=== PATIENT | male | born 1950 | race Caucasian/White ===

== ENCOUNTER 2016-09-08 14:01 | Emergency (ER) | payer BC, MEDICARE ==
--- NOTE | 2016-09-08 14:24 | ED.PDOC ---
History of Present Illness - General Chief Complaint: General Stated Complaint: chills,fever,hurts all over Time Seen by Provider: 09/08/16 14:21 Source: patient, family Exam Limitations: no limitations - History of Present Illness Timing/Duration: 24 hours Severity: moderate Improving Factors: nothing Worsening Factors: nothing Associated Symptoms: loss of appetite, other - fatigue Allergies/Adverse Reactions: Allergies NO KNOWN ALLERGY Allergy (Unverified 02/12/15 06:08) Home Medications: Ambulatory Orders Albuterol Sulfate Nebs [Proventil Nebs] 2.5 mg INH PRN 09/08/16 Amlodipine Besylate 10 mg PO DAILY 09/08/16 Beclomethasone Dipropionate [Qvar] 80 mcg IN BID 09/08/16 Budesonide (Nasal) [Budesonide] 32 mcg NA BID 09/08/16 Budesonide-Formoterol Fumarate [Symbicort] 2 aer IN BID 09/08/16 Losartan Potassium & Hydrochlo [Losartan Potassium/Hydroc 100-25 mg] 1 tab PO DAILY 09/08/16 Montelukast Sodium 10 mg PO DAILY 09/08/16 Oseltamivir Phosphate [Tamiflu] 75 mg PO BID #10 cap 09/08/16 Potassium Chloride [Micro-K] 10 meq PO DAILY 09/08/16 Sulfamethoxazole-Trimethoprim [Bactrim Ds 800-160 mg] 1 tab PO DAILY 09/08/16 Tadalafil [Cialis] 5 mg PO DAILY 09/08/16 Review of Systems - Review of Systems Constitutional: States: chills, fever. Denies: diaphoresis EENTM: States: no symptoms reported. Denies: ear pain, nose congestion, throat pain Respiratory: Denies: cough, short of breath, stridor, wheezing Cardiology: Denies: chest pain, palpitations Gastrointestinal/Abdominal: States: no symptoms reported. Denies: abdominal pain, constipation, diarrhea, nausea Genitourinary: States: no symptoms reported Musculoskeletal: States: other - general myalgias. Denies: neck pain Skin: States: no symptoms reported Neurological: States: no symptoms reported. Denies: headache, tremors Endocrine: States: no symptoms reported Hematologic/Lymphatic: States: no symptoms reported All other Systems: Reviewed and Negative Past Medical History (General) - Patient Medical History Hx Asthma: Yes Hx of COPD: Yes Hx Hypertension: Yes - Vaccination History Hx Tetanus, Diphtheria Vaccination: Yes Hx Influenza Vaccination: Yes Hx Pneumococcal Vaccination: Yes - Social History Hx Tobacco Use: Yes Hx Alcohol Use: Yes - Female History Patient : No Family Medical History - Family History Father Family History: No Known Living Status: Physical Exam - Physical Exam General Appearance: Ill Appearing, Well Nourished, Other - FATIGUED Eye Exam: bilateral normal Ears, Nose, Throat: hearing grossly normal, normal ENT inspection, normal pharynx Neck: non-tender, full range of motion, supple, normal inspection Respiratory: chest non-tender, lungs clear, normal breath sounds, no respiratory distress, no accessory muscle use Cardiovascular/Chest: normal peripheral pulses, regular rate, rhythm, no JVD Gastrointestinal/Abdominal: normal bowel sounds, non tender, soft Extremity: normal range of motion, normal inspection 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 RX TAMIFLU. CLOSE F/U. NO RESPIRATORY S/SX. Departure - Departure Clinical Impression: Influenza, Fever, Myalgia Disposition: Discharge to Home or Self Care Condition: Good Departure Forms: ED Discharge - Pt. Copy, Patient Portal Self Enrollment Instructions: Influenza Diet: other - Drink plenty of fluids and foods that sound appetizing (i.e. crackers, soup). Activity: walking as tolerated Referrals: Michael Gavin MD [Primary Care Provider] - 1-5 Days Prescriptions: Oseltamivir Phosphate [Tamiflu] 75 mg PO BID #10 cap Home Medications: Ambulatory Orders Albuterol Sulfate Nebs [Proventil Nebs] 2.5 mg INH PRN 09/08/16 Amlodipine Besylate 10 mg PO DAILY 09/08/16 Beclomethasone Dipropionate [Qvar] 80 mcg IN BID 09/08/16 Budesonide (Nasal) [Budesonide] 32 mcg NA BID 09/08/16 Budesonide-Formoterol Fumarate [Symbicort] 2 aer IN BID 09/08/16 Losartan Potassium & Hydrochlo [Losartan Potassium/Hydroc 100-25 mg] 1 tab PO DAILY 09/08/16 Montelukast Sodium 10 mg PO DAILY 09/08/16 Oseltamivir Phosphate [Tamiflu] 75 mg PO BID #10 cap 09/08/16 Potassium Chloride [Micro-K] 10 meq PO DAILY 09/08/16 Sulfamethoxazole-Trimethoprim [Bactrim Ds 800-160 mg] 1 tab PO DAILY 09/08/16 Tadalafil [Cialis] 5 mg PO DAILY 09/08/16 Additional Instructions: Please take tylenol or ibuprofen every 6 hours for fever or muscle aches. Plenty of rest and fluids. Please see your regular Dr. sooner or return to the ER if you develop any troubles breathing or other concerns.
[2016-09-08 16:00] VITALS: BP 141/75; TEMP 99.7; O2SAT 94
== END 2016-09-08 16:00 | disposition home or self-care (01) ==
LOC: ER 14:01
DX: J11.1 Influenza due to unidentified influenza virus with other respiratory manifestations (principal); J44.9 Chronic obstructive pulmonary disease, unspecified; I10 Essential (primary) hypertension; Z87.891 Personal history of nicotine dependence; Z79.899 Other long term (current) drug therapy

== ENCOUNTER 2016-09-23 05:59 | Day surgery (SDC) | payer BC, MEDICARE ==
[2016-09-23] MEDS ORDERED: SODIUM CHLORIDE 0.9% 10 ML VIAL ONE (11:51)
[2016-09-23] MEDS ORDERED: methylPREDNISolone ACETATE 80 MG/ML VIAL ONE (11:51)
[2016-09-23] MEDS ORDERED: LIDOCAINE 1% 10 ML VIAL INJ ONE (11:51)
[2016-09-23] MEDS ORDERED: SODIUM BICARBONATE VIAL 50 MEQ/50 ML VIAL IV ONE (13:17)
[2016-09-23] MEDS ORDERED: LIDOCAINE 1% MPF 5 ML VIAL INJ ONE (13:17)
[2016-09-23 13:30] VITALS: BP 157/83; TEMP 98; O2SAT 96
== END 2016-09-23 13:35 | disposition home or self-care (01) ==
LOC: AMB 05:59
PROVIDERS: ATTEND Anesthesiology Pain Medicine
DX: M51.36 Other intervertebral disc degeneration, lumbar region (principal); M51.17 Intervertebral disc disorders with radiculopathy, lumbosacral region; I10 Essential (primary) hypertension; J44.9 Chronic obstructive pulmonary disease, unspecified; Z87.891 Personal history of nicotine dependence; Z79.899 Other long term (current) drug therapy

== ENCOUNTER → 2017-01-17 | Outpatient (CLI) | payer MEDICARE, BC | END | disposition home or self-care (01) | LOC: GMAJ 12:08 | PROVIDERS: ATTEND Family Medicine | DX: Z12.5 Encounter for screening for malignant neoplasm of prostate (principal); I10 Essential (primary) hypertension | CPT/HCPCS: 84443; G0103 ==

== ENCOUNTER → 2017-05-06 | Outpatient (CLI) | payer BC, MEDICARE | END | disposition home or self-care (01) | LOC: LAB.O 11:27 | PROVIDERS: ATTEND Internal Medicine | DX: R06.09 Other forms of dyspnea (principal); J30.9 Allergic rhinitis, unspecified ==

== ENCOUNTER → 2017-05-30 | Outpatient (CLI) | payer BC, MEDICARE | END | disposition home or self-care (01) | LOC: LAB.O 07:56 | PROVIDERS: ATTEND Internal Medicine | DX: J45.909 Unspecified asthma, uncomplicated (principal) ==

== ENCOUNTER → 2017-06-11 | Outpatient (CLI) | payer BC, MEDICARE | LOC: LAB.O 14:49 | PROVIDERS: ATTEND Urology | DX: E29.1 Testicular hypofunction (principal); R97.20 Elevated prostate specific antigen [PSA] ==

== ENCOUNTER 2017-08-11 19:15 | Emergency (ER) | payer BC, MEDICARE ==
[2017-08-11] MEDS ORDERED: TETANUS,DIPHTHERIA,PERTUSSIS 1 EA SYG IM ONE (20:24)
[2017-08-11] MEDS ORDERED: CHLORHEXIDINE GLUCONATE 4 % 15 ML UD TOP ONE ×2 (20:31)
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
[2017-08-11] MEDS ORDERED: NEOMYCIN-BACITRACIN-POLYMYXIN 30 GM TUBE TOP ONE (21:00)
[2017-08-11] MEDS ORDERED: NEOMYCIN-BACITRACIN-POLYMYXIN 0.9 GM UD TOP ONE (21:02)
[2017-08-11 21:26] VITALS: BP 113/65; TEMP 98.1; O2SAT 90
== END 2017-08-11 21:26 | disposition home or self-care (01) ==
LOC: ER 19:15
DX: S61.213A Laceration without foreign body of left middle finger without damage to nail, initial encounter (principal); J44.9 Chronic obstructive pulmonary disease, unspecified; I10 Essential (primary) hypertension; Z23 Encounter for immunization; W26.0XXA Contact with knife, initial encounter; Y92.9 Unspecified place or not applicable

== ENCOUNTER 2017-09-26 08:52 | Emergency (ER) | payer BC, MEDICARE ==
[2017-09-26] MEDS ORDERED: ONDANSETRON INJ 4 MG/2 ML VIAL IM ONE (09:53)
[2017-09-26] MEDS ORDERED: HYDROmorphone HCL INJ 2 MG/ML VIAL IM ONE (09:53)
--- NOTE | 2017-09-26 09:56 | ED.PDOC ---
History of Present Illness - General Chief Complaint: General Stated Complaint: R Hip Pain radiates into the groin Time Seen by Provider: 09/26/17 09:44 Source: patient Exam Limitations: no limitations - History of Present Illness Initial Comments: HE SUFFERS OF SCIATICA AND HAS CHRONIC BACK PAIN. THIS WEEKEND HE WENT BOWLING AND NOW C/O PAIN TO THE RIGHT HIP AREA. UNABLE TO BEAR WEIGHT ON THE RIGHT HIP. Timing/Duration: 1 week Severity: severe Improving Factors: nothing Worsening Factors: nothing Associated Symptoms: denies symptoms Allergies/Adverse Reactions: Allergies NO KNOWN ALLERGY Allergy (Unverified 02/12/15 06:08) Home Medications: Ambulatory Orders Albuterol Sulfate Nebs [Proventil Nebs] 2.5 mg INH PRN 09/08/16 Beclomethasone Dipropionate [Qvar] 80 mcg IN BID 09/08/16 Budesonide (Nasal) [Budesonide] 32 mcg NA BID 09/08/16 Budesonide-Formoterol Fumarate [Symbicort] 2 aer IN BID 09/08/16 Losartan Potassium & Hydrochlo [Losartan Potassium/Hydroc 100-25 mg] 1 tab PO DAILY 09/08/16 Montelukast Sodium 10 mg PO DAILY 09/08/16 Potassium Chloride [Micro-K] 10 meq PO DAILY 09/08/16 Tadalafil [Cialis] 5 mg PO DAILY 09/08/16 Carvedilol 25 mg PO DAILY 09/26/17 Review of Systems - Review of Systems Constitutional: States: no symptoms reported EENTM: States: no symptoms reported Respiratory: States: no symptoms reported Cardiology: States: no symptoms reported Gastrointestinal/Abdominal: States: no symptoms reported Genitourinary: States: no symptoms reported Musculoskeletal: States: back pain, joint pain Skin: States: no symptoms reported Neurological: States: no symptoms reported Endocrine: States: no symptoms reported Hematologic/Lymphatic: States: no symptoms reported All other Systems: Reviewed and Negative Past Medical History (General) - Patient Medical History Hx Stroke: No Hx Asthma: Yes Hx of COPD: Yes Hx Congestive Heart Failure: No Hx Hypertension: Yes Hx Diabetes: No Hx MRSA: No Surgical History: tonsillectomy - Vaccination History Hx Tetanus, Diphtheria Vaccination: Yes Hx Influenza Vaccination: Yes Hx Pneumococcal Vaccination: Yes - Social History Hx Tobacco Use: Yes Hx Chewing Tobacco Use: No Hx Alcohol Use: Yes Hx Substance Use: No Hx Substance Use Treatment: No Hx Depression: No Feels Threatened In Home Enviroment: No Feels Threatened In a Relationship: No Hx Physical Abuse: No Hx Emotional Abuse: No Hx Suspected Abuse: No - Female History Patient : No Family Medical History - Family History Father Family History: No Known Living Status: Physical Exam - Physical Exam General Appearance: Alert, Ill Appearing Eye Exam: bilateral normal Ears, Nose, Throat: hearing grossly normal, normal ENT inspection, normal pharynx Neck: non-tender, full range of motion, supple Respiratory: chest non-tender, lungs clear, normal breath sounds, no respiratory distress, no accessory muscle use Cardiovascular/Chest: normal peripheral pulses, regular rate, rhythm, no edema, no gallop Peripheral Pulses: radial,right: 2+, radial,left: 2+ Gastrointestinal/Abdominal: normal bowel sounds, non tender, soft, no organomegaly, no pulsatile mass Extremity: normal range of motion, non-tender, normal inspection, no pedal edema , no calf tenderness Departure - Departure Clinical Impression: Lumbago Qualifiers: Chronicity: chronic Back pain laterality: right Sciatica presence: unspecified whether sciatica present Qualified Code(s): M54.5 - Low back pain Time of Disposition: 10:44 Disposition: Discharge to Home or Self Care Condition: Good Departure Forms: ED Discharge - Pt. Copy, Patient Portal Self Enrollment Diet: resume usual diet Referrals: Jayce Valentin MD [Primary Care Provider] - 1-2 Weeks Home Medications: Ambulatory Orders Albuterol Sulfate Nebs [Proventil Nebs] 2.5 mg INH PRN 09/08/16 Beclomethasone Dipropionate [Qvar] 80 mcg IN BID 09/08/16 Budesonide (Nasal) [Budesonide] 32 mcg NA BID 09/08/16 Budesonide-Formoterol Fumarate [Symbicort] 2 aer IN BID 09/08/16 Losartan Potassium & Hydrochlo [Losartan Potassium/Hydroc 100-25 mg] 1 tab PO DAILY 09/08/16 Montelukast Sodium 10 mg PO DAILY 09/08/16 Potassium Chloride [Micro-K] 10 meq PO DAILY 09/08/16 Tadalafil [Cialis] 5 mg PO DAILY 09/08/16 Carvedilol 25 mg PO DAILY 09/26/17 Additional Instructions: to pain management now
[2017-09-26] MEDS ORDERED: ONDANSETRON ODT 8 MG TAB ONE (09:59)
[2017-09-26] MEDS ORDERED: ONDANSETRON ODT 8 MG TAB SL ONE (10:07)
--- NOTE | 2017-09-26 10:22 | RAD ---
EXAM DESCRIPTION: Hip,Right 2 Views CLINICAL HISTORY: RIGHT HIP PAIN COMPARISON: None. TECHNIQUE: 2 views right FINDINGS: Loss of joint space is observed. Acetabular osteophyte formation is noted. Mild sclerosis of the acetabular roof is observed. No fracturing is detected. 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 Electronically signed by: Antonio Christianson MD 09/26/2017 10:21 AM [facility]
--- NOTE | 2017-09-26 10:24 | RAD ---
EXAM DESCRIPTION: Lumbar Spine 3 Views CLINICAL HISTORY: RIGHT HIP PAIN COMPARISON: 10 June 2016 TECHNIQUE: AP/lateral/coned-down lateral FINDINGS: The lumbar vertebral bodies are in good AP alignment. Anterior osteophyte formation is observed at the L1-2,L2 3, and L3-4 levels. Moderate facet joint arthritis is observed in the lower 2 levels of the lumbar spine. No fracturing is detected. IMPRESSION: Degenerative changes are observed in the upper lumbar spine. There is been no significant interval change from the prior exam. Electronically signed by: Antonio Christianson MD 09/26/2017 10:23 AM [facility]
--- NOTE | 2017-09-26 10:25 | RAD ---
EXAM DESCRIPTION: Pelvis CLINICAL HISTORY: RIGHT HIP PAIN COMPARISON: None. TECHNIQUE: AP pelvis FINDINGS: Degenerative changes are observed in both hips with mild loss of joint space on the right. Acetabular osteophyte formation is observed bilaterally. No pelvic or femur fracturing is detected. Phleboliths observed in the right-sided pelvis. IMPRESSION: Degenerative changes are observed in both hips more pronounced on the right. Electronically signed by: Antonio Christianson MD 09/26/2017 10:24 AM [facility]
[2017-09-26 10:27] VITALS: BP 141/67
[2017-09-26 10:57] VITALS: TEMP 97.3; O2SAT 95
== END 2017-09-26 10:51 | disposition home or self-care (01) ==
LOC: ER 08:52
DX: G89.29 Other chronic pain (principal); M54.5 Low back pain; J44.9 Chronic obstructive pulmonary disease, unspecified; Z87.891 Personal history of nicotine dependence; Z79.899 Other long term (current) drug therapy
CPT/HCPCS: 72100; 72170; 73502; J1170

== ENCOUNTER → 2018-01-26 | Outpatient (CLI) | payer MEDICARE, BC | LOC: LAB.O 09:54 | PROVIDERS: ATTEND Internal Medicine | DX: R05 Cough (principal) ==

== ENCOUNTER 2018-10-06 22:31 | Emergency (ER) | payer BC, MEDICARE ==
[2018-10-06] MEDS ORDERED: SODIUM CHLORIDE 0.9% (FLUSH) 10 ML SYG IV PRN (22:32)
[2018-10-06] MEDS ORDERED: DEXTROSE IVS ONE (22:41)
[2018-10-06] MEDS ORDERED: NITROGLYCERIN IVS ONE (22:41)
[2018-10-06] MEDS ORDERED: SODIUM CHLORIDE 0.9% 1000ML 1,000 ML ONE (22:43)
[2018-10-06] MEDS ORDERED: SODIUM CHLORIDE 0.9% 1000ML 1,000 ML IVS ONE (22:47)
--- NOTE | 2018-10-06 22:51 | ED.PDOC ---
History of Present Illness - General Chief Complaint: Cardiovascular Problem Stated Complaint: STEMI Time Seen by Provider: 10/06/18 22:45 Source: patient, family - Exam Limitations: no limitations - History of Present Illness Initial Comments: Gabriel Terry 68 y/o male stated had constant left sided crushing chest pain while watching TV tonight.Has history of COPD,HTN. Timing/Duration: 1-3 hours Severity: severe Location: central Activities at Onset: rest Prior Chest Pain/Cardiac Workup: no prior chest pain Improving Factors: nothing Worsening Factors: nothing Aspirin Treatment Today: 81 mg x 4 Associated Symptoms: chest pain Allergies/Adverse Reactions: Allergies NO KNOWN ALLERGY Allergy (Unverified 02/12/15 06:08) Home Medications: Ambulatory Orders Albuterol Sulfate Nebs [Proventil Nebs] 2.5 mg INH PRN 09/08/16 Beclomethasone Dipropionate [Qvar] 80 mcg IN BID 09/08/16 Budesonide (Nasal) [Budesonide] 32 mcg NA BID 09/08/16 Budesonide-Formoterol Fumarate [Symbicort] 2 aer IN BID 09/08/16 Losartan Potassium & Hydrochlo [Losartan Potassium/Hydroc 100-25 mg] 1 tab PO DAILY 09/08/16 Montelukast Sodium 10 mg PO DAILY 09/08/16 Potassium Chloride [Micro-K] 10 meq PO DAILY 09/08/16 Tadalafil [Cialis] 5 mg PO DAILY 09/08/16 Carvedilol 25 mg PO DAILY 09/26/17 Review of Systems - Review of Systems Constitutional: States: no symptoms reported EENTM: States: no symptoms reported Respiratory: States: no symptoms reported Cardiology: States: see HPI Gastrointestinal/Abdominal: States: no symptoms reported Genitourinary: States: no symptoms reported Skin: States: no symptoms reported Neurological: States: no symptoms reported All other Systems: Reviewed and Negative, No Change from Baseline Past Medical History (General) - Patient Medical History Hx Stroke: No Hx Asthma: Yes Hx of COPD: Yes Hx Congestive Heart Failure: No Hx Hypertension: Yes Hx Diabetes: No Hx MRSA: No - Vaccination History Hx Tetanus, Diphtheria Vaccination: Yes Hx Influenza Vaccination: Yes Hx Pneumococcal Vaccination: Yes - Social History Hx Tobacco Use: Yes Hx Chewing Tobacco Use: No Hx Alcohol Use: Yes Hx Substance Use: No Hx Substance Use Treatment: No Hx Depression: No Hx Physical Abuse: No Hx Emotional Abuse: No Hx Suspected Abuse: No - Female History Patient : No Family Medical History - Family History Father Family History: No Known Living Status: Hx Cardiac Disease: Yes - parents Physical Exam - Physical Exam General Appearance: Alert, Anxious, No apparent distress Eyes, Ears, Nose, Throat Exam: normal ENT inspection Neck: non-tender, supple, normal inspection Respiratory: chest non-tender, lungs clear, normal breath sounds, no respiratory distress Cardiovascular/Chest: normal peripheral pulses, regular rate, rhythm, no murmur Peripheral Pulses: radial,right: 2+, radial,left: 2+ Gastrointestinal/Abdominal: non tender, soft, no organomegaly Extremity: no pedal edema, no calf tenderness Neurologic: alert, oriented x 3 Skin Exam: normal color, warm/dry Progress - Progress Progress: 10/06/18 23:00 Vital Signs - 8 hr 10/06/18 22:46 Temperature 98.4 F Pulse Rate [ 61 left] Respiratory 18 Rate Blood Pressure 131/86 [right] O2 Sat by Pulse 92 L Oximetry 10/06/18 23:00 D/W Dr. Randolph Brand Activation Manager agree with plan of TNKase;This was discussed with patient side effect profile of the medicine which can cause serious bleeding in the body,and agreed to receive medication signed consent Departure - Departure Clinical Impression: Acute FL, inferior wall Time of Disposition: 23:04 Disposition: Transfer to Hospital Condition: Fair Departure Forms: Patient Portal Self Enrollment Referrals: Jayce Valentin MD [Primary Care Provider] - 1-2 Weeks Home Medications: Ambulatory Orders Albuterol Sulfate Nebs [Proventil Nebs] 2.5 mg INH PRN 09/08/16 Beclomethasone Dipropionate [Qvar] 80 mcg IN BID 09/08/16 Budesonide (Nasal) [Budesonide] 32 mcg NA BID 09/08/16 Budesonide-Formoterol Fumarate [Symbicort] 2 aer IN BID 09/08/16 Losartan Potassium & Hydrochlo [Losartan Potassium/Hydroc 100-25 mg] 1 tab PO DAILY 09/08/16 Montelukast Sodium 10 mg PO DAILY 09/08/16 Potassium Chloride [Micro-K] 10 meq PO DAILY 09/08/16 Tadalafil [Cialis] 5 mg PO DAILY 09/08/16 Carvedilol 25 mg PO DAILY 09/26/17 Transfer to Outside Facility - Transfer Information Accepting Provider:: Dr. Randolph-Brand Activation Manager Accepting Facility: [facility] Reason for Transfer: manufacturing laborer
[2018-10-06] MEDS ORDERED: TENECTEPLASE 50 MG VIAL ONE (22:54)
[2018-10-06] MEDS ORDERED: TENECTEPLASE 50 MG VIAL IV ONE (22:55)
[2018-10-06] MEDS ORDERED: MORPHINE SULFATE INJ 10 MG/ML VIAL IV ONE (22:55)
--- NOTE | 2018-10-06 22:59 | RAD ---
EXAM DESCRIPTION: Chest,1 View CLINICAL HISTORY: 68 years Male, STEMI COMPARISON: None. FINDINGS: Exam mildly limited given that the costophrenic angles are not entirely included. No consolidation. No pneumothorax. No significant pleural effusion. Cardiomediastinal silhouette is unremarkable. Osseous structures are unremarkable. IMPRESSION: No acute findings. Electronically signed by: Suresh Davis MD 10/06/2018 10:56 PM PUBLIC RELATIONS ACCOUNT EXECUTIVE
[2018-10-06 23:00] VITALS: BP 131/86; TEMP 98.4
[2018-10-06] MEDS ORDERED: HEPARIN SODIUM (PORCINE) 5,000 U/ML VIAL IV ONE (23:00)
[2018-10-06] MEDS ORDERED: NITROGLYCERIN/D5W IV 50,000 MCG in PREMIX BOTTLE 1 BOTTLE IVS SCH (23:00)
[2018-10-06] MEDS ORDERED: HEPARIN PREMIX 25,000 UNITS in PREMIX BAG 1 BAG IVS SCH (23:00)
[2018-10-06] MEDS ORDERED: fentaNYL CITRATE INJ 50 MCG/ML AMP ONE (23:03)
[2018-10-06] MEDS ORDERED: HEPARIN SODIUM (PORCINE) 5,000 U/ML VIAL ONE (23:04)
[2018-10-06] MEDS ORDERED: fentaNYL CITRATE INJ 50 MCG/ML AMP IV ONE (23:06)
[2018-10-06] MEDS ORDERED: HEPARIN PREMIX 500 ML ONE (23:10)
[2018-10-06] MEDS ORDERED: MAGNESIUM SULFATE PREMIX 2GM 50 ML IVPB ONE (23:17)
[2018-10-06] MEDS ORDERED: VECURONIUM BROMIDE 10 MG VIAL IV ONE (23:21)
[2018-10-06] MEDS ORDERED: MIDAZOLAM INJ 5 MG/5 ML VIAL ONE ×2 (23:21→23:44)
[2018-10-06] MEDS ORDERED: SUCCINYLCHOLINE CHLORIDE 200 MG/10 ML VIAL ONE (23:21)
[2018-10-07 01:10] VITALS: O2SAT 97
== END 2018-10-07 00:15 | disposition short-term general hospital (02) ==
LOC: ER 22:31
DX: I21.19 ST elevation (STEMI) myocardial infarction involving other coronary artery of inferior wall (principal); J44.9 Chronic obstructive pulmonary disease, unspecified; I10 Essential (primary) hypertension; Z87.891 Personal history of nicotine dependence; Z79.899 Other long term (current) drug therapy
CPT/HCPCS: 31500; 36415; 71045; 80048; 80076; 82550; 82553; 83880; 84484; 85025; 85379; 85610; 85730; 92950; 93005; J0330; J1644; J2250; J3010; J3101; J3475; J7030

== ENCOUNTER → 2018-10-29 | Outpatient (CLI) | payer MEDICARE, BC ==
--- NOTE | 2018-10-29 13:18 | US ---
Study: Left upper extremity venous Doppler sonogram. Indication: LT ARM SWELLING, HX OF PICC LINE Technical: Multiplanar grayscale and Doppler sonographic images of the deep veins of the left upper extremity obtained. Impression: There is no sonographic evidence of deep venous thrombosis. The deep veins of the left upper extremity compress normally and have appropriate duplex waveforms. Normal flow augmentation is noted as well. Superficial thrombus noted within the cephalic vein distally extending to the wrist. Stenotype Operator relating these findings to the ordering physician at the time of image acquisition. Electronically signed by: Jas Landry MD 10/29/2018 1:15 PM CDT
== END ==
LOC: US 12:14
PROVIDERS: ATTEND General Practice
DX: R22.32 Localized swelling, mass and lump, left upper limb (principal); I82.612 Acute embolism and thrombosis of superficial veins of left upper extremity